=== PATIENT | male | born 1955 | race Caucasian/White ===

== ENCOUNTER → 2016-07-08 | Outpatient (CLI) | payer BC, OTHER ==
[2015-01-11 17:05] VITALS: BP 103/73
[~2016-07-08] MED LIST: ESCI5TAB8 PO; IOHEXOL 300 MG/ML 75 ML VIAL. IV ONE; METO25TA9 PO; MULT-208 PO; OMEG300C PO
--- NOTE | 2016-07-08 09:24 | RAD ---
Indication restage lymphoma. Contrast imaging through the chest, abdomen and pelvis was performed. Both oral and IV contrast were administered. Approximately 75 cc of Omnipaque 300 was administered intravenously. Comparison is made to a similar series of examinations 01/29/2015. CT chest: Findings. There is no significant axillary adenopathy. No significant hilar or mediastinal adenopathy is seen. The thoracic aorta appears normal. An acute parenchymal infiltrate in either lung is not seen. There is a nodule in the right lung, image 55 series 4, similar to the previous exam. An additional nodule, along the fissure is seen in the right lung, image 44, also unchanged. A new nodule or dominant soft tissue mass in either lung is not seen. CT abdomen and pelvis: Findings. A focal mass lesion in the liver is not seen. The gallbladder appears grossly normal. The spleen is unchanged. There is no definite splenomegaly. There is a small mass in the spleen similar to the previous exam likely reflecting an incidental cyst. The pancreas adrenal glands and kidneys appear unremarkable. There is no significant central or retroperitoneal adenopathy. Acute finding in the abdomen is not seen. In the pelvis there is no significant adenopathy. Acute finding is not apparent. There are small inguinal hernias containing fat. Degenerative changes are noted in the lumbar spine. IMPRESSION: No acute finding seen in the chest, abdomen or pelvis. No significant adenopathy seen in the chest, abdomen or pelvis. No evidence of tumor recurrence PQRS Compliance Statement: One or more of the following individualized dose reduction techniques were utilized for this examination: 1. Automated exposure control 2. Adjustment of the mA and/or kV according to patient size 3. Use of iterative reconstruction technique
== END | disposition home or self-care (01) ==
LOC: CT 07:55
PROVIDERS: ATTEND Internal Medicine Medical Oncology
DX: C83.33 Diffuse large B-cell lymphoma, intra-abdominal lymph nodes (principal); R10.9 Unspecified abdominal pain
CPT/HCPCS: 71260; 74177; Q9967

== ENCOUNTER → 2016-09-27 | Outpatient (CLI) | payer OTHER ==
[2015-01-11 17:05] VITALS: BP 103/73
[~2016-09-27] MED LIST changes: -IOHEXOL 300 MG/ML 75 ML VIAL. IV ONE
--- NOTE | 2016-09-27 12:03 | RAD ---
Indication cough and shortness of air. PA and lateral views of the chest were obtained and are compared to an examination 02/29/2008. The heart and pulmonary vessels appear normal. The lungs are clear. There is no pleural fluid or pneumothorax. Bony structures appear grossly unremarkable. IMPRESSION: No acute or focal process seen in the chest
== END | disposition home or self-care (01) ==
LOC: RAD 10:35
PROVIDERS: ATTEND Physician Assistant
DX: R05 Cough (principal); R06.02 Shortness of breath; R06.00 Dyspnea, unspecified
CPT/HCPCS: 71020

== ENCOUNTER 2017-11-13 20:37 | Inpatient (IN) | payer OTHER ==
[~2017-11-13] VITALS: Ht 182.9 cm; Wt 123.0 kg
[~2017-11-13 20:37] MED LIST changes: -ESCI5TAB8 PO; +LEXAPRO5 MG PO; +METO-239 PO; -METO25TA9 PO
--- NOTE | 2017-11-13 20:54 | ED.ADGEN ---
Past History Past Medical History: Anxiety, Cancer, Depression, High Cholesterol, Other Past Surgical History: Cancer Surgery, Tonsillectomy, Other Alcohol Use: Occasionally Drug Use: None Adult General Chief Complaint Chief Complaint ".. I was going up the stairs.. and I got dizzy..."... " I ve thaddeus been dizzy ever since they mess my meds all around.. ".. " I almost went completely out when I stood. up..." I see Jr D[facility], and [facility]... but I also go to [facility].. too for some care. I be been nauseated.. probably did not take enough fluids in... and I been getting muscle cramps... and stomach pain... but I have stomach pain all the time because of my B-Cell Lymphoma--scarred up and got attached to a bunch of my gut... but I been doing well... I did all the CHOP ... 8 treatments... and they removed my ports.. It just to day.. I been really dizzy... You took care of my mom when she was sick here...",, " Sometimes it feels like my heart is skips before I have the dizzy episodes..." HPI HPI Patient is a 62 year old male who presents with above hx and complaints of dizzy episodes. Pt. normally follows with [facility] and [facility]. Pt. has some what extensive medical hx. with treatment with B-cell lymphoma discovered on attempted surgical removal of his spleen. Lymphoma had it attached to much of his intestines. Spleen was not removed. The patient went on treatment of CHOP x 8 in 2009. Hx. of HTN, Anxiety, Hx. of Depression. Pt. recent had several med. changes, and since then pt. report episodic dizzy spells. Pt. did become dizzy and Hypotensive on standing after arrival to ED. Symptoms improved after bolus of LR. Review of Systems Review of Systems Constitutional: Denies fever or chills [] Eyes: Denies change in visual acuity, redness, or eye pain [] HENT: Denies nasal congestion or sore throat [] Respiratory: Denies cough or shortness of breath [] Cardiovascular: No additional information not addressed in HPI [] GI: Chronic abdominal pain, Hx nausea,. Denies vomiting, bloody stools or diarrhea [] : Denies dysuria or hematuria [] Musculoskeletal: Denies back pain or joint pain [] Integument: Denies rash or skin lesions [] Neurologic: Denies headache, focal weakness or sensory changes [] Endocrine: Denies polyuria or polydipsia [] All other systems were reviewed and found to be within normal limits, except as documented in this note. Family History Family History Non-contributory Current Medications Current Medications Current Medications Medications (Trade) Dose Ordered Sig/Tomi Start Time Stop Time Status Last Admin Dose Admin Lactated Ringer's 1,000 ml @ 1,000 mls/hr 1X ONCE 11/13/17 21:00 11/13/17 21:59 DC 11/13/17 21:00 1,000 MLS/HR Ondansetron HCl (Zofran Odt) 4 mg STK-MED ONCE 11/13/17 20:56 11/13/17 20:57 DC Allergies Allergies Allergies Coded Allergies Type Severity Reaction Last Updated Verified acetaminophen Allergy Intermediate Nausea 01/11/15 Yes codeine Allergy Intermediate Nausea 01/11/15 Yes Physical Exam Physical Exam Constitutional: , no acute distress, non-toxic appearance. [] HENT: Normocephalic, atraumatic, bilateral external ears normal, oropharynx moist, no oral exudates, nose normal. [] Eyes: PERRLA, EOMI, conjunctiva normal, no discharge. [] Neck: Normal range of motion, no tenderness, supple, no stridor. [] Cardiovascular:Heart rate regular rhythm, no murmur [] Lungs & Thorax: Bilateral breath sounds clear to auscultation [] Abdomen: Bowel sounds normal, soft, no tenderness, no masses, no pulsatile masses. [] Obese. Old surgery scars. Large splenic area scar. Skin: Warm, dry, no erythema, no rash. [] Back: No tenderness, no CVA tenderness. [] Extremities: No tenderness, no cyanosis, no clubbing, ROM intact, no edema. [] Arthritic changes. Neurologic: Alert and oriented X 3, no gross motor and l sensory function deficits, no gross focal deficits noted. [] Psychologic: Affect normal, judgement normal, mood normal. [] Current Patient Data Vital Signs Vital Signs Date Time Temp Pulse Resp B/P (MAP) Pulse Ox O2 Delivery O2 Flow Rate FiO2 11/13/17 20:37 98.2 86 18 93 Room Air Lab Results Laboratory Tests Test 11/13/17 21:29 White Blood Count 6.2 x10^3/uL (4.0-11.0) Red Blood Count 3.62 x10^6/uL (4.30-5.70) L Hemoglobin 12.1 g/dL (13.0-17.5) L Hematocrit 34.0 % (39.0-53.0) L Mean Corpuscular Volume 94 fL (79-100) Mean Corpuscular Hemoglobin 34 pg (25-35) Mean Corpuscular Hemoglobin Concent 36 g/dL (31-37) Red Cell Distribution Width 13.9 % (11.5-14.5) Platelet Count 142 x10^3/uL (140-400) Neutrophils (%) (Auto) 69 % (31-73) Lymphocytes (%) (Auto) 21 % (24-48) L Monocytes (%) (Auto) 8 % (0-9) Eosinophils (%) (Auto) 2 % (0-3) Basophils (%) (Auto) 0 % (0-3) Neutrophils # (Auto) 4.2 x10^3uL (1.8-7.7) Lymphocytes # (Auto) 1.3 x10^3/uL (1.0-4.8) Monocytes # (Auto) 0.5 x10^3/uL (0.0-1.1) Eosinophils # (Auto) 0.1 x10^3/uL (0.0-0.7) Basophils # (Auto) 0.0 x10^3/uL (0.0-0.2) Prothrombin Time 10.7 SEC (9.4-11.4) Prothrombin Time INR 1.0 (0.9-1.1) PTT 23 SEC (23-33) D-Dimer (Lizbeth) 0.31 mg/L (0.00-0.50) Sodium Level 136 mmol/L (136-145) Potassium Level 3.7 mmol/L (3.5-5.1) Chloride Level 103 mmol/L (98-107) Carbon Dioxide Level 28 mmol/L (21-32) Anion Gap 5 (6-14) L Blood Urea Nitrogen 20 mg/dL (8-26) Creatinine 1.1 mg/dL (0.7-1.3) Estimated GFR (Cockcroft-Gault) 68.1 Glucose Level 119 mg/dL (70-99) H Calcium Level 8.6 mg/dL (8.5-10.1) Magnesium Level 1.7 mg/dL (1.8-2.4) L Creatine Kinase 169 U/L (39-308) Creatine Kinase MB (Mass) 6.3 ng/mL (0.0-3.6) H Creatine Kinase MB Relative Index 3.7 % (0-4) Troponin I Quantitative < 0.017 ng/mL (0-0.055) HE-Tfs-J-Type Natriuretic Peptide 48 pg/mL (0-124) EKG EKG My interpretation of EKG shows a sinus rhythm at 72 bpm. There is mild leftward axis. Some nonspecific T-wave changes. No findings acute STEMI of contralateral changes.[] Radiology/Procedures Radiology/Procedures My interpretation chest x-ray shows some atelectasis. And elevation of left diaphragm.[] Chronic changes My interpretation of CT head shows no shift, mass, edema, fracture, or bleed. Does have some white matter disease changes. Course & Med Decision Making Course & Med Decision Making Pertinent Labs and Imaging studies reviewed. (See chart for details). Discussed presentation, testing and tx. plan with Dr. Montero. Will admit for further eval. tx. [] Final Impression Final Impression 1. Dizzy[]episodes. 2. Syncope 3. History of B-cell lymphoma- Complete CHOP x 8- Completed 9 yrs ago 4. Anemia 5. Subjective Hx. of dysrhythmia 6. Hx HTN 7. Hx. Anxiety 8. Hx. of Depression 9. Hypomagnesium Dragon Disclaimer Dragon Disclaimer This electronic medical record was generated, in whole or in part, using a voice recognition dictation system. TONE CESPEDES MD Nov 13, 2017 20:54
[2017-11-13] MEDS ORDERED: ONDANSETRON ODT 4 MG TAB.RAPDIS ONE (20:56)
[2017-11-13] MEDS ORDERED: IV RINGERS SOLUTION,LACTATED 1,000 ML IV ONE (21:00)
[2017-11-13] MEDS: IV RINGERS SOLUTION,LACTATED 1,000 ML IV SCH (21:22)
[2017-11-13 21:47] LABS: BASO % 0 % (0-3); EOS # 0.1 x10^3/uL (0.0-0.7); EOS % 2 % (0-3); HEMOGLOBIN 12.1 g/dL (13.0-17.5); LYMPH # 1.3 x10^3/uL (1.0-4.8); LYMPH % 21 % (24-48); MEAN CORPUSCULAR HEMOGLOBIN 34 pg (25-35); MEAN CORPUSCULAR HGB CONC 36 g/dL (31-37); MEAN CORPUSCULAR VOLUME 94 fL (79-100); MONO # 0.5 x10^3/uL (0.0-1.1); MONO % 8 % (0-9); NEUT # 4.2 x10^3uL (1.8-7.7); NEUT % 69 % (31-73); PLATELET COUNT 142 x10^3/uL (140-400); RED BLOOD COUNT 3.62 x10^6/uL (4.30-5.70); RED CELL DISTRIBUTION WIDTH 13.9 % (11.5-14.5); WHITE BLOOD COUNT 6.2 x10^3/uL (4.0-11.0)
[2017-11-13 22:10] LABS: CALCIUM 8.6 mg/dL (8.5-10.1); CREATININE 1.1 mg/dL (0.7-1.3); GFR 68.1; MAGNESIUM 1.7 mg/dL (1.8-2.4); POTASSIUM 3.7 mmol/L (3.5-5.1)
[2017-11-13] MEDS ORDERED: ONDANSETRON ODT 4 MG TAB.RAPDIS PO ONE (22:15)
[2017-11-13] MEDS ORDERED: ONDANSETRON PF 4 MG/2 ML VIAL. IV PRN (22:30)
[2017-11-13] MEDS ORDERED: MAGNESIUM SULFATE 2GM 50 ML IV ONE (22:30)
[2017-11-13] MEDS ORDERED: IV RINGERS SOLUTION,LACTATED 1,000 ML IV SCH (22:30)
[2017-11-13] MEDS: IPRATRPIUM/ALBUTEROL 0.5/2.5MG 3 ML NEBU. NEB SCH (22:30)
[2017-11-13] MEDS ORDERED: MORPHINE SULFATE 2 MG/ML DISP.SYRIN. IV PRN (22:30)
--- NOTE | 2017-11-13 22:34 | RAD ---
CT head without intravenous contrast History: Dizziness, syncopal episode. Comparison: None. Technique: Axial images are obtained of the head from the skull base through the vertex without IV contrast. Exposure: One or more of the following individualized dose reduction techniques were utilized for this examination: 1. Automated exposure control 2. Adjustment of the mA and/or kV according to patient size 3. Use of iterative reconstruction technique Findings: The ventricles are appropriate in size, shape, and location for the patient's age. No obvious intracranial mass, mass-effect, midline shift, hemorrhage or obvious acute infarction is identified. Basilar cisterns are patent. Bone windows demonstrate no acute calvarial abnormality. The visualized paranasal sinuses appear clear. Impression: No acute intracranial process. Please note that CT can be relatively insensitive to acute ischemic infarction for up to 24 hours after symptom onset. Electronically signed by: Kamari Toussaint MD (11/13/2017 10:30 PM) [facility]
--- NOTE | 2017-11-13 22:34 | RAD ---
Exam: AP portable chest History: Dizziness, syncope. Comparison: September 27, 2016. Findings: The heart and mediastinal structures are within normal limits for size. Lungs are without infiltrate. No pleural effusion or pneumothorax is identified. Impression: 1. No acute cardiopulmonary process. Electronically signed by: Kamari Toussaint MD (11/13/2017 10:31 PM) [facility]
[2017-11-13 22:56] LABS: BARBITURATES NEG (NEG); BENZODIAZEPINES NEG (NEG); CANNABINOIDS NEG (NEG); COCAINE NEG (NEG); METHADONE NEG (NEG); OPIATES NEG (NEG); PHENCYCLIDINE NEG (NEG)
[2017-11-13 22:57] LABS: AMPHETAMINE/METHAMPHETAMINE NEG (NEG)
[2017-11-13 22:59] LABS: BILIRUBIN,URINE NEG (NEG); CLARITY,URINE CLEAR; COLOR,URINE YELLOW; GLUCOSE,URINE NEG (NEG); NITRITE,URINE NEG (NEG); UROBILINOGEN,URINE 0.2 mg/dL (0.2 mg/dL)
[2017-11-13 23:00] LABS: BACTERIA,URINE FEW /HPF (0-FEW); RBC,URINE 0 /HPF (0-2); SQUAMOUS EPITHELIAL CELL,UR OCC /LPF; WBC,URINE OCC /HPF (0-4)
[2017-11-13] MEDS ORDERED: ASPIRIN 81 MG TAB.CHEW PO ONE (23:00)
[2017-11-13 23:30] VITALS: BP 112/72
[2017-11-14] MEDS ORDERED: zoloft (01:39)
[2017-11-14] MEDS ORDERED: ZOLP5TAB PO (01:39)
[2017-11-14] MEDS ORDERED: lasix (01:40)
[2017-11-14] MEDS ORDERED: CHOL2000 PO (01:41)
[2017-11-14] MEDS ORDERED: TAMS0.4C97 PO (01:41)
[2017-11-14] MEDS ORDERED: ESCI20TA2 PO (04:21)
[2017-11-14] MEDS ORDERED: METO-247 PO (04:21)
[2017-11-14] MEDS: IV RINGERS SOLUTION,LACTATED 1,000 ML IV SCH ×2 (04:47→10:45)
[2017-11-14] MEDS: IPRATRPIUM/ALBUTEROL 0.5/2.5MG 3 ML NEBU. NEB SCH ×2 (05:26→10:10)
[2017-11-14 06:23] VITALS: BP 112/67
--- NOTE | 2017-11-14 06:35 | EKG ---
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
[2017-11-14 06:51] LABS: BASO % 0 % (0-3); EOS # 0.1 x10^3/uL (0.0-0.7); EOS % 1 % (0-3); HEMATOCRIT 35.2 % (39.0-53.0); HEMOGLOBIN 12.6 g/dL (13.0-17.5); LYMPH # 1.3 x10^3/uL (1.0-4.8); LYMPH % 22 % (24-48); MEAN CORPUSCULAR HEMOGLOBIN 33 pg (25-35); MEAN CORPUSCULAR HGB CONC 36 g/dL (31-37); MEAN CORPUSCULAR VOLUME 93 fL (79-100); MONO # 0.5 x10^3/uL (0.0-1.1); MONO % 8 % (0-9); NEUT # 4.1 x10^3uL (1.8-7.7); NEUT % 68 % (31-73); PLATELET COUNT 134 x10^3/uL (140-400); RED BLOOD COUNT 3.77 x10^6/uL (4.30-5.70); RED CELL DISTRIBUTION WIDTH 13.9 % (11.5-14.5); WHITE BLOOD COUNT 6.1 x10^3/uL (4.0-11.0)
[2017-11-14 07:02] LABS: CALCIUM 8.6 mg/dL (8.5-10.1); CREATININE 1.1 mg/dL (0.7-1.3); GFR 68.1; POTASSIUM 3.7 mmol/L (3.5-5.1)
[2017-11-14] MEDS ORDERED: ALLO300T PO (09:43)
[2017-11-14] MEDS ORDERED: SERT25TA PO (09:43)
[2017-11-14] MEDS ORDERED: TERA5CAP3 PO (09:43)
[2017-11-14 11:28] VITALS: BP 108/70
--- NOTE | 2017-11-14 13:28 | PDOC2 ---
CONSULT Date of Admission DATE: 11/14/17 TIME: 13:22 Reason for Consult: Dizziness Referring Physician: Dr. Montero Chief Complaint Dizziness Source: Patient Problem List Problems Medical Problems: (1) Syncope and collapse Status: Acute History of Present Illness The patient is a 62-year-old male with a history of B-cell lymphoma and hypertension. He was admitted through the ER last evening for episodes of increased dizziness. Patient states he took one or 2 extra medications last evening which she is not sure of the name of. Following this he became dizzy and was brought to the emergency room. His dizziness resolved overnight and is feeling well this morning. His monitoring overnight showed a sinus rhythm. Workup has included a chest x-ray that showed no acute changes. CT head scan showed no acute process. EKG showed a sinus rhythm with nonspecific ST-T wave changes and T-wave inversion in lead 3. Troponins have been normal 2. Magnesium was mildly decreased at 1.7 and has been replaced. The patient is comfortable this morning and wishes to go home. Cardiovascular: HTN Heme/Onc: Other (B-cell lymphoma) Psych: Anxiety Past Surgical History: Tonsillectomy, Other (exploratory laparotomy.) Family History: Hypertension Smoke: No ALCOHOL: none Current Medications Current Medications Lactated Ringer's 1,000 ml @ 1,000 mls/hr 1X ONCE IV Last administered on at 21:00; Start 11/13/17 at 21:00; Stop 11/13/17 at 21:59; Status DC Ondansetron HCl (Zofran Odt) 4 mg STK-MED ONCE .ROUTE ; Start 11/13/17 at 20:56 ; Stop 11/13/17 at 20:57; Status DC Ondansetron HCl (Zofran Odt) 8 mg 1X ONCE PO Last administered on 11/13/17at 21 :04; Start 11/13/17 at 22:15; Stop 11/13/17 at 22:16; Status DC Lactated Ringer's 1,000 ml @ 160 mls/hr Q6H15M IV Last administered on at 04:47; Start 11/13/17 at 22:15; Stop 11/14/17 at 12:38; Status DC Ondansetron HCl (Zofran) 4 mg PRN Q4HRS PRN IV NAUSEA/VOMITING; Start 11/13/17 at 22:30; Stop 11/14/17 at 12:38; Status DC Morphine Sulfate (Morphine 2mg Syringe) 2 mg PRN Q2HR PRN IV PAIN; Start at 22:30; Stop 11/14/17 at 12:38; Status DC Albuterol/ Ipratropium (Duoneb) 3 ml RTQID NEB Last administered on 11/14/17at 10:10; Start 11/13/17 at 22:30; Stop 11/14/17 at 12:38; Status DC Lactated Ringer's 1,000 ml @ 160 mls/hr Q6H15M IV Last administered on at 23:56; Start 11/13/17 at 22:30; Stop 11/14/17 at 04:25; Status DC Magnesium Sulfate 50 ml @ 25 mls/hr 1X ONCE IV Last administered on 11/13/17at 23:56; Start 11/13/17 at 22:30; Stop 11/14/17 at 00:29; Status DC Aspirin (Children'S Aspirin) 324 mg 1X ONCE PO Last administered on 11/13/17at 22:51; Start 11/13/17 at 23:00; Stop 11/13/17 at 23:01; Status DC Active Scripts Active Reported Zoloft (Sertraline Hcl) 25 Mg Tablet 0.5 Tab PO DAILY 5 Days Allopurinol 300 Mg Tablet 1 Tab PO DAILY Terazosin Hcl 5 Mg Capsule 1 Cap PO QHS Escitalopram Oxalate 20 Mg Tablet 1 Tab PO DAILY Metoprolol Succinate ( Xl ) (Metoprolol Succinate) 100 Mg Tab.er.24h 1 Tab PO DAILY Vitamin D (Cholecalciferol (Vitamin D3)) 2,000 Unit Capsule 2,000 Unit PO DAILY Flomax (Tamsulosin Hcl) 0.4 Mg Cap.er.24h 0.4 Mg PO DAILY Ambien (Zolpidem Tartrate) 5 Mg Tablet 5 Mg PO PRN QHS PRN Allergies: Coded Allergies: acetaminophen (Verified Allergy, Intermediate, Nausea, 01/11/15) codeine (Verified Allergy, Intermediate, Nausea, 01/11/15) Cardiovascular: yes: Lt [place] General: No acute distress HEENT: Atraumatic Lungs: Clear to auscultation Heart: Regular rate Abdomen: Normal bowel sounds VITALS Vital Signs Date Time Temp Pulse Resp B/P (MAP) Pulse Ox O2 Delivery O2 Flow Rate FiO2 11/14/17 11:28 97.8 82 108/70 (83) 94 Room Air 11/14/17 06:23 18 Labs Laboratory Tests Test 11/13/17 21:29 11/13/17 22:35 11/14/17 02:30 11/14/17 06:08 White Blood Count 6.2 x10^3/uL (4.0-11.0) 6.1 x10^3/uL (4.0-11.0) Red Blood Count 3.62 x10^6/uL (4.30-5.70) 3.77 x10^6/uL (4.30-5.70) Hemoglobin 12.1 g/dL (13.0-17.5) 12.6 g/dL (13.0-17.5) Hematocrit 34.0 % (39.0-53.0) 35.2 % (39.0-53.0) Mean Corpuscular Volume 94 fL (79-100) 93 fL (79-100) Mean Corpuscular Hemoglobin 34 pg (25-35) 33 pg (25-35) Mean Corpuscular Hemoglobin Concent 36 g/dL (31-37) 36 g/dL (31-37) Red Cell Distribution Width 13.9 % (11.5-14.5) 13.9 % (11.5-14.5) Platelet Count 142 x10^3/uL (140-400) 134 x10^3/uL (140-400) Neutrophils (%) (Auto) 69 % (31-73) 68 % (31-73) Lymphocytes (%) (Auto) 21 % (24-48) 22 % (24-48) Monocytes (%) (Auto) 8 % (0-9) 8 % (0-9) Eosinophils (%) (Auto) 2 % (0-3) 1 % (0-3) Basophils (%) (Auto) 0 % (0-3) 0 % (0-3) Neutrophils # (Auto) 4.2 x10^3uL (1.8-7.7) 4.1 x10^3uL (1.8-7.7) Lymphocytes # (Auto) 1.3 x10^3/uL (1.0-4.8) 1.3 x10^3/uL (1.0-4.8) Monocytes # (Auto) 0.5 x10^3/uL (0.0-1.1) 0.5 x10^3/uL (0.0-1.1) Eosinophils # (Auto) 0.1 x10^3/uL (0.0-0.7) 0.1 x10^3/uL (0.0-0.7) Basophils # (Auto) 0.0 x10^3/uL (0.0-0.2) 0.0 x10^3/uL (0.0-0.2) Prothrombin Time 10.7 SEC (9.4-11.4) Prothromb Time International Ratio 1.0 (0.9-1.1) Activated Partial Thromboplast Time 23 SEC (23-33) D-Dimer (Lizbeth) 0.31 mg/L (0.00-0.50) Sodium Level 136 mmol/L (136-145) 137 mmol/L (136-145) Potassium Level 3.7 mmol/L (3.5-5.1) 3.7 mmol/L (3.5-5.1) Chloride Level 103 mmol/L (98-107) 103 mmol/L (98-107) Carbon Dioxide Level 28 mmol/L (21-32) 28 mmol/L (21-32) Anion Gap 5 (6-14) 6 (6-14) Blood Urea Nitrogen 20 mg/dL (8-26) 18 mg/dL (8-26) Creatinine 1.1 mg/dL (0.7-1.3) 1.1 mg/dL (0.7-1.3) Estimated GFR (Cockcroft-Gault) 68.1 68.1 Glucose Level 119 mg/dL (70-99) 118 mg/dL (70-99) Calcium Level 8.6 mg/dL (8.5-10.1) 8.6 mg/dL (8.5-10.1) Magnesium Level 1.7 mg/dL (1.8-2.4) Creatine Kinase 169 U/L (39-308) Creatine Kinase MB (Mass) 6.3 ng/mL (0.0-3.6) Creatine Kinase MB Relative Index 3.7 % (0-4) Troponin I Quantitative < 0.017 ng/mL (0-0.055) < 0.017 ng/mL (0-0.055) AZ-Ima-E-Type Natriuretic Peptide 48 pg/mL (0-124) Urine Collection Type Unknown Urine Color Yellow Urine Clarity Clear Urine pH 6.0 Urine Specific [place] 1.020 Urine Protein Neg (NEG-TRACE) Urine Glucose (UA) Neg mg/dL (NEG) Urine Ketones (Stick) Neg mg/dL (NEG) Urine Blood Neg (NEG) Urine Nitrite Neg (NEG) Urine Bilirubin Neg (NEG) Urine Urobilinogen Dipstick 0.2 mg/dL (0.2 mg/dL) Urine Leukocyte Esterase Neg (NEG) Urine RBC 0 /HPF (0-2) Urine WBC Occ /HPF (0-4) Urine Squamous Epithelial Cells Occ /LPF Urine Bacteria Few /HPF (0-FEW) Urine Mucus Mod /LPF Urine Opiates Screen Neg (NEG) Urine Methadone Screen Neg (NEG) Urine Barbiturates Neg (NEG) Urine Phencyclidine Screen Neg (NEG) Urine Amphetamine/Methamphetamine Neg (NEG) Urine Benzodiazepines Screen Neg (NEG) Urine Cocaine Screen Neg (NEG) Urine Cannabinoids Screen Neg (NEG) Urine Ethyl Alcohol Neg (NEG) Images CT scan of the head without contrast showed no acute processes. Chest x-ray showed no acute process. Assessment/Plan 1. Dizziness. Patient's dizziness has now resolved. His rhythm has remained stable overnight. He has ruled out for a myocardial infarction. CT head scan shows no acute process. Would increase activities today. If the patient remains stable he may go home later today from a cardiac viewpoint. He is seen at on a yearly basis for occasional palpitations. 2. Hypertension. Patient's blood pressures under control. 3. History of B-cell lymphoma. He is followed at for this. Thank you for allowing us to participate in the care of your patient. MARIAJOSE GAGE MD Nov 14, 2017 13:28
--- NOTE | 2017-11-19 10:29 | PDOC1 ---
History of Present Illness History of Present Illness Patient is a 62-year-old male with history of B-cell lymphoma underwent CHOP 8 in 2009 who presented to the emergency department last evening with a near syncopal episode. Patient states that he began taking a new antidepressant sertraline and thinks he might have taken a double dose for some reason. He does admit to drinking whiskey last night as well says he did not feel as if he were intoxicated. He wanted to get up from the chair and walk up the stairs and while doing so became very dizzy with some cold sweats and he had to sit down. He admittedly has not been drinking enough water and has been getting muscle cramps. He was evaluated in the emergency department and found to be hypotensive and dizzy with standing, these symptoms resolved with IV fluids. I find the patient today to be sitting up with family at bedside he is watching television having just finished breakfast. He is in good spirits and joking he denies any complaints and says he's been fine ever since he got the IV last night. Denies any headache or focal neurologic deficits no chest pain at any time. Cardiology has been to see him and cleared him and he is anticipating discharge home. EKG: Normal sinus rhythm [address] changes no STEMI CT of the head and chest x-ray were unremarkable for acute process ED labs: White blood cells 6.2, hemoglobin 12.1, platelets 142, PT 1, PTT 23, d- dimer 0.31, sodium 136, potassium 3.7, chloride 103, CO2 28, albumin 20, creatinine 1.1, troponin less than 0.017 Chief Complaint: DIZZY/LIGHT HEADED Allergies: Coded Allergies: acetaminophen (Verified Allergy, Intermediate, Nausea, 01/11/15) codeine (Verified Allergy, Intermediate, Nausea, 01/11/15) Past Medical History Cardiac: HTN, hyperipidemia Heme/Onc: Other (B-cell lymphoma) Psych: Anxiety, Depression Past Surgical History: Tonsillectomy, Other (exploratory laparotomy) Family History: No pertinent hx Past Social History Smoke: No Alcohol: occassional Drugs: None Lives: with Family Review of Systems Review Of Systems Fourteen system , review of systems has been reviewed. See HPI for pertinent positives and negative responses, other gonzales all other systems are negative, non pertinent or non contributory Constitutional: Sweats, Malaise; No: Fever, Chills Eyes: No: Eye Pain, Loss of vision, Photophobia, [place] ENT: No: Ear pain, Nose pain, Mouth pain Respiratory: No: Cough, Orthopnea, Shortness of breath, SOB with excertion Cardiovascular: No: Chest Pain, Palpitations, Paroxysmal Noc. Dyspnea, Edema Gastrointestinal: No: Nausea, Vomiting, Abdominal Pain Musculoskeletal: No: Gait Disturbance, Joint Pain, Joint Stiffness SKIN: YES: Warm, Dry, No Rashes Neurological: YES: Dizziness; No: Behavorial Changes, Bowel/Bladder ControlChng, Headaches Medications Current Medications Lactated Ringer's 1,000 ml @ 1,000 mls/hr 1X ONCE IV Last administered on at 21:00; Start 11/13/17 at 21:00; Stop 11/13/17 at 21:59; Status DC Ondansetron HCl (Zofran Odt) 4 mg STK-MED ONCE .ROUTE ; Start 11/13/17 at 20:56 ; Stop 11/13/17 at 20:57; Status DC Ondansetron HCl (Zofran Odt) 8 mg 1X ONCE PO Last administered on 11/13/17at 21 :04; Start 11/13/17 at 22:15; Stop 11/13/17 at 22:16; Status DC Lactated Ringer's 1,000 ml @ 160 mls/hr Q6H15M IV Last administered on at 04:47; Start 11/13/17 at 22:15; Stop 11/14/17 at 12:38; Status DC Ondansetron HCl (Zofran) 4 mg PRN Q4HRS PRN IV NAUSEA/VOMITING; Start 11/13/17 at 22:30; Stop 11/14/17 at 12:38; Status DC Morphine Sulfate (Morphine 2mg Syringe) 2 mg PRN Q2HR PRN IV PAIN; Start at 22:30; Stop 11/14/17 at 12:38; Status DC Albuterol/ Ipratropium (Duoneb) 3 ml RTQID NEB Last administered on 11/14/17at 10:10; Start 11/13/17 at 22:30; Stop 11/14/17 at 12:38; Status DC Lactated Ringer's 1,000 ml @ 160 mls/hr Q6H15M IV Last administered on at 23:56; Start 11/13/17 at 22:30; Stop 11/14/17 at 04:25; Status DC Magnesium Sulfate 50 ml @ 25 mls/hr 1X ONCE IV Last administered on 11/13/17at 23:56; Start 11/13/17 at 22:30; Stop 11/14/17 at 00:29; Status DC Aspirin (Children'S Aspirin) 324 mg 1X ONCE PO Last administered on 11/13/17at 22:51; Start 11/13/17 at 23:00; Stop 11/13/17 at 23:01; Status DC Active Scripts Active Reported Zoloft (Sertraline Hcl) 25 Mg Tablet 0.5 Tab PO DAILY 5 Days Allopurinol 300 Mg Tablet 1 Tab PO DAILY Terazosin Hcl 5 Mg Capsule 1 Cap PO QHS Escitalopram Oxalate 20 Mg Tablet 1 Tab PO DAILY Metoprolol Succinate ( Xl ) (Metoprolol Succinate) 100 Mg Tab.er.24h 1 Tab PO DAILY Vitamin D (Cholecalciferol (Vitamin D3)) 2,000 Unit Capsule 2,000 Unit PO DAILY Flomax (Tamsulosin Hcl) 0.4 Mg Cap.er.24h 0.4 Mg PO DAILY Ambien (Zolpidem Tartrate) 5 Mg Tablet 5 Mg PO PRN QHS PRN Exam Vital Signs Vital Signs Date Time Temp Pulse Resp B/P (MAP) Pulse Ox O2 Delivery O2 Flow Rate FiO2 11/14/17 11:28 97.8 82 108/70 (83) 94 Room Air 11/14/17 06:23 18 General Appearance: Alert, Oriented X3, Cooperative, No acute distress HEENT: Atraumatic, PERRLA, EOMI, Mucous membr. moist/pink Heart: Regular rate, Normal S1, Normal S2, No murmurs Abdominal: Normal bowel sounds, Soft, No tenderness Extremities: No clubbing, No cyanosis, No edema, Normal pulses Neuro: Normal gait, Normal speech, Strength at 5/5 X4 ext, Cranial nerves 3-12 NL Psych/Mental Status: Mental status NL, Mood NL Assessment/Plan Assessment/Plan Near syncope Orthostatic hypotension Hypovolemia History of B-cell lymphoma Aggressive hydration Take medications as prescribed Take care when standing do so slowly Follow-up with her doctor this week COURSE Allergies Coded Allergies Type Severity Reaction Last Updated Verified acetaminophen Allergy Intermediate Nausea 01/11/15 Yes codeine Allergy Intermediate Nausea 01/11/15 Yes Vital Signs Date Time Temp Pulse Resp B/P (MAP) Pulse Ox O2 Delivery O2 Flow Rate FiO2 11/14/17 11:28 97.8 82 108/70 (83) 94 Room Air 11/14/17 06:23 18 DAVE MACIAS DO Nov 19, 2017 10:29
== END 2017-11-14 12:21 | disposition home or self-care (01) | DRG 312 ==
LOC: ER 20:37 → 1 SOUTH 22:00
PROVIDERS: ADMIT Internal Medicine; ATTEND Internal Medicine
DX: I95.1 Orthostatic hypotension (principal); R42 Dizziness and giddiness; E78.00 Pure hypercholesterolemia, unspecified; F41.9 Anxiety disorder, unspecified; I10 Essential (primary) hypertension; F32.9 Major depressive disorder, single episode, unspecified; Z82.49 Family history of ischemic heart disease and other diseases of the circulatory system; Z88.8 Allergy status to other drugs, medicaments and biological substances; Z79.899 Other long term (current) drug therapy; E86.1 Hypovolemia
CPT/HCPCS: 36415; 70450; 71045; 80048; 80307; 81001; 82553; 83735; 83880; 84484; 85025; 85379; 85610; 85730; 93005; 94640; 96360; G0238; J3475; J7120; J7620; Q0162; 99285-25; G0479

== ENCOUNTER 2018-10-11 05:07 | Emergency (ER) | payer OTHER ==
[~2018-10-11] VITALS: Ht 182.9 cm; Wt 123.4 kg
[~2018-10-11 05:07] MED LIST changes: +ALLO300T PO; +CHOL2000 PO; +ESCI20TA2 PO; +METO-247 PO; +SERT25TA PO; +TAMS0.4C97 PO; +TERA5CAP3 PO; +ZOLP5TAB PO; +lasix; +zoloft
[2018-10-11 05:15] VITALS: BP 132/75
--- NOTE | 2018-10-11 05:50 | ED.ADGEN ---
Past History Past Medical History: Other Past Surgical History: Other Alcohol Use: Occasionally Drug Use: None Adult General Chief Complaint Chief Complaint Productive cough HPI HPI Patient is a 63-year-old male with history of recurrent bronchitis who presents with productive cough for the past 5 days. Patient was evaluated at [facility] 3 days ago for the same and started on Z-Darrick and guaifenesin with codeine. Patient states medications has not helped and hit that his sputum production is now yellow. Reports persistent rhinorrhea, postnasal drip and cough. No shortness of breath. No fevers chills, nausea vomiting or sweats. Patient is unable to sleep and has developed a headache and chest wall pain secondary to the cough. Patient is a nonsmoker. No history of asthma. No other medications or therapy sticking prior to ED arrival.[] Review of Systems Review of Systems Review symptoms as per history of present illness. All other review symptoms are negative. All other systems were reviewed and found to be within normal limits, except as documented in this note. Current Medications Current Medications Current Medications Medications (Trade) Dose Ordered Sig/Tomi Start Time Stop Time Status Last Admin Dose Admin Albuterol/ Ipratropium (Duoneb) 3 ml 1X ONCE 10/11/18 06:00 10/11/18 06:01 Allergies Allergies Allergies Coded Allergies Type Severity Reaction Last Updated Verified acetaminophen Allergy Intermediate Nausea 01/11/15 Yes codeine Allergy Intermediate Nausea 01/11/15 Yes Physical Exam Physical Exam Constitutional: Well developed, well nourished, no acute distress, non-toxic appearance. [] HENT: Normocephalic, no sinus , bilateral external ears normal, oropharynx moist, no oral exudates, nose, rhinorrhea, minimal erythema with swelling. Voice hoarseness.[] Eyes: PERRLA, conjunctivae injected.[] Neck: Normal range of motion, no tenderness, supple, no stridor. [] Cardiovascular:Heart rate regular rhythm, no murmur [] Lungs & Thorax: Bilateral breath sounds clear to auscultation.[] Back: No tenderness, no CVA tenderness. [] Extremities: No tenderness, no cyanosis, no clubbing, ROM intact, no edema. [] Neurologic: Alert and oriented X 3, normal motor function, normal sensory function, no focal deficits noted. [] Psychologic: Affect normal, judgement normal, mood normal. [] Current Patient Data Vital Signs Vital Signs Date Time Temp Pulse Resp B/P (MAP) Pulse Ox O2 Delivery O2 Flow Rate FiO2 10/11/18 05:15 98.8 86 24 132/75 (94) 97 Room Air EKG EKG [] Radiology/Procedures Radiology/Procedures [Chest x-ray: Pending] Course & Med Decision Making Course & Med Decision Making Pertinent Labs and Imaging studies reviewed. (See chart for details) [Patient with rhinosinusitis with bronchitis and headache and chest wall pain secondary to the same. On day 4 of Z-Darrick and guaifenesin with codeine without improvement. Breathing treatment given. Chest x-ray pending. Will prescribe Tessalon Perles with nasal steroids and decongestant. Recommend PCP follow-up. Lissette continue current antibiotics if chest x-ray is negative] Final Impression Final Impression [] Dragon Disclaimer Dragon Disclaimer This electronic medical record was generated, in whole or in part, using a voice recognition dictation system. TEJAL CHERY DO Oct 11, 2018 05:50
[2018-10-11] MEDS ORDERED: BENZ100C PO (05:56)
[2018-10-11] MEDS ORDERED: FEXO180T81 PO (05:56)
[2018-10-11] MEDS ORDERED: TRIA10.8 NS (05:56)
[2018-10-11] MEDS ORDERED: IPRATRPIUM/ALBUTEROL 0.5/2.5MG 3 ML NEBU. NEB ONE (06:00)
--- NOTE | 2018-10-11 06:36 | RAD ---
Chest radiograph 10/11/2018 5:38 AM INDICATION: Congestion, cough COMPARISON: November 13, 2017 TECHNIQUE: Frontal and lateral views of the chest are provided. FINDINGS: The cardiomediastinal silhouette is within normal limits. There are no pleural effusions. There is mild pulmonary vascular congestion. There is no pneumothorax. The lungs are clear. No significant osseous abnormality is identified. IMPRESSION: Mild pulmonary vascular congestion. Electronically signed by: Mary Saldana MD (10/11/2018 6:32 AM) [facility]
== END 2018-10-11 06:18 | disposition home or self-care (01) ==
LOC: ER 05:07
DX: J40 Bronchitis, not specified as acute or chronic (principal); J32.8 Other chronic sinusitis; R07.89 Other chest pain; Z88.5 Allergy status to narcotic agent; Z88.6 Allergy status to analgesic agent
CPT/HCPCS: 71046; 94640; 99284; J7620

== ENCOUNTER 2019-12-27 09:25 | Emergency (ER) | payer OTHER ==
[~2019-12-27] VITALS: Ht 182.9 cm; Wt 112.6 kg
[~2019-12-27 09:25] MED LIST changes: +BENZ100C PO; +FEXO180T81 PO; +TRIA10.8 NS
--- NOTE | 2019-12-27 09:57 | PHYS DOC ---
Past History Past Medical History: Anxiety, Arthritis, Arrhythmia, Bronchitis, Cancer, Depression, GERD, Sciatica Additional Past Medical Histor: GOUT; NON-HODGKIND LYMPHOMA; SKIN CANCER Past Surgical History: Tonsillectomy, Other Additional Past Surgical Histo: R KNEE; L KNEE; EYE; TUMOR REMOVED FROM ABD; ING HERNIA; R FOOT Alcohol Use: Occasionally Drug Use: None General Adult EDM: Chief Complaint: NAUSEA/VOMITING/DIARRHEA HPI: HPI: The history was obtained from the patient. Patient is a 64-year-old male with PMH GERD, hypertension, anxiety, depression who presents with a chief complaint of nausea. Patient states he has had 2 episodes of nonbloody nonbilious emesis over the past 24 hours. He states that he drank quite a bit of alcohol 3 days prior to arrival. He states he does not typically do this. He notes very mild diffuse abdominal discomfort. He notes a history of abdominal surgery due to splenic tumor removal. He does note some increased labored breathing but thinks this is because he does not feel well. Denies any chest pain. Denies fevers. Denies cough or sore throat. Denies syncope. Has not tried any medicine at home to help. Denies any tobacco or drug abuse. States the abdominal pain is cramping in nature and constant. Denies any known exposure to coronavirus. Review of Systems: Review of Systems: Constitutional: Denies fever or chills Eyes: Denies change in visual acuity HENT: Denies nasal congestion or sore throat Respiratory: Denies cough or shortness of breath Cardiovascular: Denies chest pain or edema GI: Positive for vomiting : Denies dysuria Musculoskeletal: Denies back pain or joint pain Integument: Denies rash Neurologic: Denies headache, focal weakness or sensory changes Endocrine: Denies polyuria or polydipsia Lymphatic: Denies swollen glands Psychiatric: Denies depression or anxiety Heart Score: HEART Score for Chest Pain: HEART Score for Chest Pain Response (Comments) Value History Slighlty/Non-Suspicious 0 ECG Nonspecific Repolarizatio 1 Age >45 - < 65 1 Risk Factors 1 or 2 Risk Factors 1 Troponin < Normal Limit 0 Total 3 Risk Factors: Risk Factors: DM, Current or recent (<one month) smoker, HTN, HLP, family history of CAD, obesity. Risk Scores: Score 0 - 3: 2.5% MACE over next 6 weeks - Discharge Home Score 4 - 6: 20.3% MACE over next 6 weeks - Admit for Clinical Observation Score 7 - 10: 72.7% MACE over next 6 weeks - Early Invasive Strategies Allergies: Allergies: Allergies Coded Allergies Type Severity Reaction Last Updated Verified acetaminophen Allergy Intermediate Nausea 12/27/19 Yes codeine Allergy Intermediate Nausea 12/27/19 Yes Physical Exam: PE: Constitutional: Well developed, well nourished, no acute distress, non-toxic appearance. [] HENT: Normocephalic, atraumatic, bilateral external ears normal, oropharynx moist, no oral exudates, nose normal. [] Eyes: PERRLA, EOMI, conjunctiva normal, no discharge. [] Neck: Normal range of motion, no tenderness, supple, no stridor. [] Cardiovascular:Heart rate regular rhythm, no murmur [] Lungs & Thorax: Bilateral breath sounds clear to auscultation [] Abdomen: Soft, nontender, nonacute abdomen. No involuntary guarding or rigidity noted. No acute peritonitis. Midline laparotomy scar noted. Well-healed. Skin: Warm, dry, no erythema, no rash. [] Back: No tenderness, no CVA tenderness. [] Extremities: No tenderness, no cyanosis, no clubbing, ROM intact, no edema. [] Neurologic: Alert and oriented X 3, normal motor function, normal sensory function, no focal deficits noted. [] Psychologic: Affect normal, judgement normal, mood normal. [] Current Patient Data: Labs: Laboratory Tests Test 12/27/19 10:12 12/27/19 11:15 White Blood Count 5.8 x10^3/uL Red Blood Count 4.11 x10^6/uL Hemoglobin 14.0 g/dL Hematocrit 40.5 % Mean Corpuscular Volume 99 fL Mean Corpuscular Hemoglobin 34 pg Mean Corpuscular Hemoglobin Concent 35 g/dL Red Cell Distribution Width 14.8 % Platelet Count 173 x10^3/uL Neutrophils (%) (Auto) 75 % Lymphocytes (%) (Auto) 17 % Monocytes (%) (Auto) 7 % Eosinophils (%) (Auto) 1 % Basophils (%) (Auto) 1 % Neutrophils # (Auto) 4.4 x10^3uL Lymphocytes # (Auto) 1.0 x10^3/uL Monocytes # (Auto) 0.4 x10^3/uL Eosinophils # (Auto) 0.1 x10^3/uL Basophils # (Auto) 0.0 x10^3/uL D-Dimer (Lizbeth) 0.22 mg/L Sodium Level 140 mmol/L Potassium Level 4.2 mmol/L Chloride Level 102 mmol/L Carbon Dioxide Level 26 mmol/L Anion Gap 12 Blood Urea Nitrogen 16 mg/dL Creatinine 1.0 mg/dL Estimated GFR (Cockcroft-Gault) 75.5 BUN/Creatinine Ratio 16 Glucose Level 112 mg/dL Calcium Level 9.2 mg/dL Magnesium Level 1.9 mg/dL Total Bilirubin 1.0 mg/dL Aspartate Amino Transf (AST/SGOT) 22 U/L Alanine Aminotransferase (ALT/SGPT) 33 U/L Alkaline Phosphatase 59 U/L Troponin I Quantitative < 0.017 ng/mL Total Protein 7.0 g/dL Albumin 4.2 g/dL Albumin/Globulin Ratio 1.5 Lipase 66 U/L Urine Collection Type Unknown Urine Color Yellow Urine Clarity Clear Urine pH 8.5 Urine Specific [place] 1.020 Urine Protein Neg Urine Glucose (UA) Neg mg/dL Urine Ketones (Stick) Neg mg/dL Urine Blood Neg Urine Nitrite Neg Urine Bilirubin Neg Urine Urobilinogen Dipstick 0.2 mg/dL Urine Leukocyte Esterase Neg Urine RBC Occ /HPF Urine WBC Occ /HPF Urine Squamous Epithelial Cells Few /LPF Urine Bacteria 0 /HPF Current Medications Medications (Trade) Dose Ordered Sig/Tomi Route PRN Reason Start Time Stop Time Status Last Admin Dose Admin Ondansetron HCl (Zofran) 4 mg 1X ONCE IVP 12/27/19 10:00 12/27/19 10:01 DC 12/27/19 11:04 Pantoprazole Sodium (Protonix Vial) 40 mg 1X ONCE IVP 12/27/19 10:00 12/27/19 10:01 DC 12/27/19 11:07 Famotidine (Pepcid Vial) 20 mg 1X ONCE IVP 12/27/19 10:00 12/27/19 10:01 DC 12/27/19 11:05 Vital Signs: Vital Signs Date Time Temp Pulse Resp B/P (MAP) Pulse Ox O2 Delivery O2 Flow Rate FiO2 12/27/19 09:43 98.4 EKG: EKG: EKG consistent with normal sinus rhythm. Left axis noted. Flipped T wave in lead III. No acute ST segment elevation appreciated. [] Radiology/Procedures: Radiology/Procedures: [address] [address] IMAGING REPORT Signed PATIENT: BYRON COVARRUBIAS ACCOUNT: [id number] : 1955 LOCATION: ER AGE: 64 SEX: M EXAM STATUS: PRE ER ORD. PHYSICIAN: NATALIA LEBRON DO REASON: SOB PROCEDURE: CHEST AP ONLY CHEST AP ONLY 12/27/2019 9:52 AM INDICATION: Shortness of breath COMPARISON: 10/11/2018 TECHNIQUE: Portable frontal view of the chest is provided. FINDINGS: The cardiomediastinal silhouette is within normal limits. Lungs are clear. There are no significant pleural effusions. There is no pulmonary vascular congestion. No pneumothorax. No suspicious osseous abnormality. IMPRESSION: There is no acute cardiopulmonary process. Electronically signed by: Loki Prasad MD (12/27/2019 10:19 AM) [id number] DICTATED AND SIGNED BY: LOKI PRASAD MD DATE: 12/27/19 1019 CC: LOBO BRENE; NATALIA LEBRON DO ~ [] Course & Med Decision Making: Course & Med Decision Making Pertinent Labs and Imaging studies reviewed. (See chart for details) Patient is a 64-year-old male who presents with chief complaint of nausea vomiting and intermittent chest pain. Initial vital signs grossly unremarkable. EKG does show nonspecific inverted T wave in lead III. No previous EKG for comparison. Basic labs were obtained and were grossly unremarkable. Initial troponin negative. D-dimer negative. On repeat examination patient's abdomen is benign vitals remained stable. He states his symptoms have improved significantly. I did engage the patient in a collaborative discussion regarding the possibility of hospitalization for further work-up of his chest pain. He states he does follow with a safety officer Dr. Reese at [facility] who is done calcium testing on him recently which was normal.. However he does deny any ischemic work-up. Overall the patient's heart score places him in the low to moderate risk category. I do ultimately feel he would benefit from hosp italization however the patient feels the symptoms are related to his recent drinking 3 nights ago. He states his symptoms have improved. Utilizing shared decision making patient will be discharged home with close follow-up by his PCP and safety officer. Strict return precautions discussed and understood. Stable for discharge home. Barbara Disclaimer: Barbara Disclaimer: This electronic medical record was generated, in whole or in part, using a voice recognition dictation system. Departure Departure: Impression: Primary Impression: Nausea & vomiting Qualified Codes: R11.2 - Nausea with vomiting, unspecified Additional Impression: Chest pain Qualified Codes: R07.9 - Chest pain, unspecified Disposition: HOME/RESIDENCE PRIOR TO ADM Condition: STABLE Referrals: LOBO BREEN (PCP) Patient Instructions: Chest Pain (Nonspecific) Additional Instructions: Please follow-up with your primary care physician in the next 2 to 3 days and your safety officer in the next week. Scripts Ondansetron Hcl (ZOFRAN) 8 Mg Tablet 4 MG PO TID PRN PRN for NAUSEA, #9 TAB Prov: NATALIA LEBRON DO 12/27/19 Justification of Admission: Justification of Admission: Justification of Admission Dx: N/A NATALIA LEBRON DO Dec 27, 2019 09:57
[2019-12-27] MEDS ORDERED: FAMOTIDINE 20 MG/2 ML VIAL IVP ONE (10:00)
[2019-12-27] MEDS ORDERED: ONDANSETRON PF 4 MG/2 ML VIAL. IVP ONE (10:00)
[2019-12-27] MEDS ORDERED: PANTOPRAZOLE IV 40 MG VIAL. IVP ONE (10:00)
--- NOTE | 2019-12-27 10:12 | EKG ---
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
--- NOTE | 2019-12-27 10:22 | RAD ---
CHEST AP ONLY 12/27/2019 9:52 AM INDICATION: Shortness of breath COMPARISON: 10/11/2018 TECHNIQUE: Portable frontal view of the chest is provided. FINDINGS: The cardiomediastinal silhouette is within normal limits. Lungs are clear. There are no significant pleural effusions. There is no pulmonary vascular congestion. No pneumothorax. No suspicious osseous abnormality. IMPRESSION: There is no acute cardiopulmonary process. Electronically signed by: Mary Saldana MD (12/27/2019 10:19 AM) [id number]
[2019-12-27 10:31] LABS: BASO % 1 % (0-3); EOS # 0.1 x10^3/uL (0.0-0.7); EOS % 1 % (0-3); HEMATOCRIT 40.5 % (39.0-53.0); LYMPH % 17 % (24-48); MEAN CORPUSCULAR HEMOGLOBIN 34 pg (25-35); MEAN CORPUSCULAR HGB CONC 35 g/dL (31-37); MEAN CORPUSCULAR VOLUME 99 fL (79-100); MONO # 0.4 x10^3/uL (0.0-1.1); MONO % 7 % (0-9); NEUT # 4.4 x10^3uL (1.8-7.7); NEUT % 75 % (31-73); PLATELET COUNT 173 x10^3/uL (140-400); RED BLOOD COUNT 4.11 x10^6/uL (4.30-5.70); RED CELL DISTRIBUTION WIDTH 14.8 % (11.5-14.5); WHITE BLOOD COUNT 5.8 x10^3/uL (4.0-11.0)
[2019-12-27 10:41] LABS: CALCIUM 9.2 mg/dL (8.5-10.1); GFR 75.5; POTASSIUM 4.2 mmol/L (3.5-5.1)
[2019-12-27 10:47] LABS: ALBUMIN 4.2 g/dL (3.4-5.0); ALBUMIN/GLOBULIN RATIO 1.5 (1.0-1.7); MAGNESIUM 1.9 mg/dL (1.8-2.4)
[2019-12-27 12:14] LABS: BACTERIA,URINE 0 /HPF (0-FEW); BILIRUBIN,URINE NEG (NEG); CLARITY,URINE CLEAR; COLOR,URINE YELLOW; GLUCOSE,URINE NEG (NEG); NITRITE,URINE NEG (NEG); RBC,URINE OCC /HPF (0-2); SQUAMOUS EPITHELIAL CELL,UR FEW /LPF; UROBILINOGEN,URINE 0.2 mg/dL (0.2 mg/dL); WBC,URINE OCC /HPF (0-4)
[2019-12-27] MEDS ORDERED: ONDA8TAB9 PO (12:28)
[2019-12-27 12:39] VITALS: BP 137/82
== END 2019-12-27 12:30 | disposition home or self-care (01) ==
LOC: ER 09:25
DX: R11.2 Nausea with vomiting, unspecified (principal); R07.9 Chest pain, unspecified; R10.84 Generalized abdominal pain; K21.9 Gastro-esophageal reflux disease without esophagitis; I10 Essential (primary) hypertension; M19.90 Unspecified osteoarthritis, unspecified site; Z88.5 Allergy status to narcotic agent; Z88.6 Allergy status to analgesic agent
CPT/HCPCS: 36415; 71045; 80053; 81001; 83690; 83735; 84484; 85025; 85379; 93005; 96374; 96375; 99285; C9113; J2405; J3490

== ENCOUNTER 2020-07-12 14:45 | Emergency (ER) | payer OTHER ==
[~2020-07-12] VITALS: Ht 182.9 cm; Wt 112.6 kg
[~2020-07-12 14:45] MED LIST changes: -ESCI20TA2 PO; +ESCI20TA8 PO; +ONDA8TAB9 PO
[2020-07-12] MEDS ORDERED: IV NORMAL SALINE 1,000ML 1,000 ML IV SCH (15:00)
--- NOTE | 2020-07-12 15:06 | EKG ---
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
[2020-07-12 15:17] LABS: BASO % 0 % (0-3); EOS % 0 % (0-3); HEMATOCRIT 41.5 % (39.0-53.0); HEMOGLOBIN 13.9 g/dL (13.0-17.5); LYMPH # 0.7 x10^3/uL (1.0-4.8); LYMPH % 5 % (24-48); MEAN CORPUSCULAR HEMOGLOBIN 33 pg (25-35); MEAN CORPUSCULAR HGB CONC 33 g/dL (31-37); MEAN CORPUSCULAR VOLUME 97 fL (79-100); MONO # 0.8 x10^3/uL (0.0-1.1); MONO % 6 % (0-9); NEUT # 12.2 x10^3uL (1.8-7.7); NEUT % 89 % (31-73); PLATELET COUNT 172 x10^3/uL (140-400); RED BLOOD COUNT 4.27 x10^6/uL (4.30-5.70); RED CELL DISTRIBUTION WIDTH 16.2 % (11.5-14.5); WHITE BLOOD COUNT 13.8 x10^3/uL (4.0-11.0)
--- NOTE | 2020-07-12 15:17 | RAD ---
AP chest. HISTORY: Short of breath AP view was taken of the chest. There is no pneumothorax or pleural effusion. Lungs are clear. Heart is normal in size. IMPRESSION: 1. No acute chest disease. Electronically signed by: Darrion Miles MD (07/12/2020 3:15 PM) [facility]
[2020-07-12 15:24] LABS: CALCIUM 8.7 mg/dL (8.5-10.1); CREATININE 1.5 mg/dL (0.7-1.3); GFR 47.1; POTASSIUM 3.5 mmol/L (3.5-5.1)
--- NOTE | 2020-07-12 15:28 | PHYS DOC ---
Past History Past Medical History: Anxiety, Arthritis, Arrhythmia, Bronchitis, Cancer, Depression, GERD, Sciatica Additional Past Medical Histor: GOUT; NON-HODGKIND LYMPHOMA; SKIN CANCER (MICHEL CASTELLANOS MD) Past Surgical History: Tonsillectomy, Other Additional Past Surgical Histo: R KNEE; L KNEE; EYE; TUMOR REMOVED FROM ABD; ING HERNIA; R FOOT (MICHEL CASTELLANOS MD) Alcohol Use: Occasionally Drug Use: None (MICHEL CASTELLANOS MD) Adult General Chief Complaint Chief Complaint: RAPID HEART RATE HPI HPI Patient is a 65-year-old male with an extensive past medical history now presenting emergency department for new onset of tachycardia and fever. Patient notes that yesterday afternoon he started noting general sensation of fatigue and developed sensation sore throat. Patient states that this morning he noted that he was further feeling unwell today when he was developing fever. They surjit t to the urgent care and noted that he was tachycardic to 135% here to the emergency department patient does complain of generalized fatigue, fevers, [place] nonproductive cough and body aches. Denies any chest pain, shortness of breath or dizziness at this time. (MICHEL CASTELLANOS MD) Review of Systems Review of Systems Constitutional: Denies fever or chills [] Eyes: Denies change in visual acuity, redness, or eye pain [] HENT: Denies nasal congestion or sore throat [] Respiratory: Denies cough or shortness of breath [] Cardiovascular: No additional information not addressed in HPI [] GI: Denies abdominal pain, nausea, vomiting, bloody stools or diarrhea [] : Denies dysuria or hematuria [] Musculoskeletal: Denies back pain or joint pain [] Integument: Denies rash or skin lesions [] Neurologic: Denies headache, focal weakness or sensory changes [] Endocrine: Denies polyuria or polydipsia [] All other systems were reviewed and found to be within normal limits, except as documented in this note. (MICHEL CASTELLANOS MD) Current Medications Current Medications Current Medications Medications (Trade) Dose Ordered Sig/Tomi Start Time Stop Time Status Last Admin Dose Admin Sodium Chloride 1,000 ml @ 1,000 mls/hr Q1H 07/12/20 15:00 07/12/20 15:59 07/12/20 15:17 1,000 MLS/HR (MICHEL CASTELLANOS MD) Allergies Allergies Allergies Coded Allergies Type Severity Reaction Last Updated Verified acetaminophen Allergy Intermediate Nausea 12/27/19 Yes codeine Allergy Intermediate Nausea 12/27/19 Yes (MICHEL CASTELLANOS MD) Physical Exam Physical Exam Constitutional: Well developed, well nourished, no acute distress, non-toxic appearance. [] HENT: Normocephalic, atraumatic, bilateral external ears normal, oropharynx moist, no oral exudates, nose normal. [] Eyes: PERRLA, EOMI, conjunctiva normal, no discharge. [] Neck: Normal range of motion, no tenderness, supple, no stridor. [] Cardiovascular:Heart rate regular rhythm, no murmur [] Lungs & Thorax: Bilateral breath sounds clear to auscultation [] Abdomen: Bowel sounds normal, soft, no tenderness, no masses, no pulsatile masses. [] Skin: Warm, dry, no erythema, no rash. [] Back: No tenderness, no CVA tenderness. [] Extremities: No tenderness, no cyanosis, no clubbing, ROM intact, no edema. [] Neurologic: Alert and oriented X 3, normal motor function, normal sensory function, no focal deficits noted. [] Psychologic: Affect normal, judgement normal, mood normal. [] (MICHEL CASTELLANOS MD) Current Patient Data Lab Results Laboratory Tests Test 07/12/20 14:57 White Blood Count 13.8 x10^3/uL (4.0-11.0) H Red Blood Count 4.27 x10^6/uL (4.30-5.70) L Hemoglobin 13.9 g/dL (13.0-17.5) Hematocrit 41.5 % (39.0-53.0) Mean Corpuscular Volume 97 fL (79-100) Mean Corpuscular Hemoglobin 33 pg (25-35) Mean Corpuscular Hemoglobin Concent 33 g/dL (31-37) Red Cell Distribution Width 16.2 % (11.5-14.5) H Platelet Count 172 x10^3/uL (140-400) Neutrophils (%) (Auto) 89 % (31-73) H Lymphocytes (%) (Auto) 5 % (24-48) L Monocytes (%) (Auto) 6 % (0-9) Eosinophils (%) (Auto) 0 % (0-3) Basophils (%) (Auto) 0 % (0-3) Neutrophils # (Auto) 12.2 x10^3uL (1.8-7.7) H Lymphocytes # (Auto) 0.7 x10^3/uL (1.0-4.8) L Monocytes # (Auto) 0.8 x10^3/uL (0.0-1.1) Eosinophils # (Auto) 0.0 x10^3/uL (0.0-0.7) Basophils # (Auto) 0.0 x10^3/uL (0.0-0.2) (MICHEL CASTELLANOS MD) EKG EKG [] (MICHEL CASTELLANOS MD) EKG My interpretation EKG shows a sinus tachycardia at ventricular rate of 134 bpm. Nonspecific contour changes. Consistent with strain pattern (TONE CESPEDES MD) Radiology/Procedures Radiology/Procedures AP chest. HISTORY: Short of breath AP view was taken of the chest. There is no pneumothorax or pleural effusion. Lungs are clear. Heart is normal in size. IMPRESSION: 1. No acute chest disease. Electronically signed by: Darrion Miles MD (07/12/2020 3:15 PM) [facility] (MICHEL CASTELLANOS MD) Radiology/Procedures [address] [address] IMAGING REPORT Signed PATIENT: BYRON COVARRUBIAS ACCOUNT: [id number] : 1955 LOCATION: ER AGE: 65 SEX: M EXAM STATUS: REG ER ORD. PHYSICIAN: MICHEL CASTELLANOS MD REASON: sob PROCEDURE: PORTABLE CHEST 1V AP chest. HISTORY: Short of breath [address] [address] IMAGING REPORT Signed PATIENT: BYRON COVARRUBIAS ACCOUNT: [id number] : 1955 LOCATION: ER AGE: 65 SEX: M EXAM STATUS: REG ER ORD. PHYSICIAN: MICHEL CASTELLANOS MD REASON: sob PROCEDURE: PORTABLE CHEST 1V AP chest. HISTORY: Short of breath AP view was taken of the chest. There is no pneumothorax or pleural effusion. Lungs are clear. Heart is normal in size. IMPRESSION: 1. No acute chest disease. Electronically signed by: Darrion Miles MD (07/12/2020 3:15 PM) [facility] DICTATED AND SIGNED BY: DARRION MILES MD DATE: 07/12/201513 CC: LOBO BREEN; MICHEL CASTELLANOS MD ~MTH0 0 AP view was taken of the chest. There is no pneumothorax or pleural effusion. Lungs are clear. Heart is normal in size. IMPRESSION: 1. No acute chest disease. Electronically signed by: Darrion Miles MD (07/12/2020 3:15 PM) [facility] DICTATED AND SIGNED BY: DARRION MILES MD DATE: 07/12/201513 CC: LOBO BREEN; MICHEL CASTELLANOS MD ~MTH0 0 (TONE CESPEDES MD) Heart Score Risk Factors: Risk Factors: DM, Current or recent (<one month) smoker, HTN, HLP, family history of CAD, obesity. Risk Scores: Risk Factors: DM, Current or recent (<one month) smoker, HTN, HLP, family history of CAD, obesity. (MICHEL CASTELLANOS MD) C/O Chest Pain: N/A HEART Score for Chest Pain: HEART Score for Chest Pain Response (Comments) Value History Slighlty/Non-Suspicious 0 ECG Normal 0 Age >45 - < 65 1 Risk Factors 1 or 2 Risk Factors 1 Troponin < Normal Limit 0 Total 2 (TONE CESPEDES MD) Course & Med Decision Making Course & Med Decision Making Pertinent Labs and Imaging studies reviewed. (See chart for details) [] (MICHEL CASTELLANOS MD) Course & Med Decision Making See Dr. Castellanos chart for details Still awaiting urine and flu results. 2000 hrs. Patient requesting discharge 2000 hours. Patient states he feels a 100% better. Patient follow-up is pending Covid and flu swabs. Suspect this is a viral syndrome and dehydration. But due to patient's history of lymphoma will complete a course of antibiotics. Recommend patient self isolate. Wear a mask anytime when away from home. Return if any concerns. Patient to take Keflex 500 mg 3 times a day. Follow-up cultures. Follow-up primary care. Return if any concerns. Impression: 1. Fever 2. Recent negative Flu and Covid testing at [facility]gent [facility] 3. Mild Leukocytosis 13.8 4. Hyponatremia 133 5. Elevated Creatg. 1.5 6. Non-Hodgkins Lymphoma Hx 7. Dehydration 8. Viral syndrome 9. Mild hypo-magnesium (TONE CESPEDES MD) Dragon Disclaimer Dragon Disclaimer This electronic medical record was generated, in whole or in part, using a voice recognition dictation system. (MICHEL CASTELLANOS MD) Departure Departure: Referrals: LOBO BREEN (PCP) Scripts Cephalexin (KEFLEX) 750 Mg Capsule 750 MG PO TID for fever for 7 Days, #21 CAP Prov: TONE CESPEDES MD 07/12/20 Dragon Disclaimer This chart was dictated in whole or in part using Voice Recognition software in a busy, high-work load, and often noisy Emergency Department environment. It may contain unintended and wholly unrecognized errors or omissions. (TONE CESPEDES MD) MICHEL CASTELLANOS MD Jul 12, 2020 15:28 TONE CESPEDES MD Jul 12, 2020 18:50
[2020-07-12] MEDS ORDERED: VANCOMYCIN 1.5 GM in IV NORMAL SALINE 500ML 500 ML IV ONE (15:30)
[2020-07-12] MEDS ORDERED: PIPERACILLIN/TAZOBACTAM 3.375 GM VIAL IV ONE (15:32)
[2020-07-12] MEDS ORDERED: IV NORMAL SALINE 50ML 50 ML ONE (15:32)
[2020-07-12 15:36] LABS: ALBUMIN 3.6 g/dL (3.4-5.0); MAGNESIUM 1.5 mg/dL (1.8-2.4); TOTAL PROTEIN 7.3 g/dL (6.4-8.2)
[2020-07-12] MEDS ORDERED: VANCOMYCIN PER PHARMACY MC PRN (15:45)
[2020-07-12] MEDS ORDERED: PIPERACILLIN/TAZOBACTAM 3.375 GM in IV NORMAL SALINE 50ML 50 ML IV ONE (15:45)
[2020-07-12] MEDS ORDERED: VANCOMYCIN 2 GM in IV NORMAL SALINE 500ML 500 ML IV ONE (16:00)
[2020-07-12] MEDS ORDERED: IBUPROFEN 800 MG TABLET. PO ONE (17:00)
[2020-07-12] MEDS ORDERED: CEPH750C9 PO (20:20)
[2020-07-12 20:43] LABS: INFLUENZA A PATIENT NEGATIVE (NEGATIVE); INFLUENZA B PATIENT NEGATIVE (NEGATIVE)
[2020-07-12] MEDS ORDERED: MAGNESIUM HYDROXIDE 2,400 MG/30 ML ORAL.SUSP. PO ONE (20:45)
[2020-07-12 21:23] LABS: BACTERIA,URINE MOD /HPF (0-FEW); BILIRUBIN,URINE NEG (NEG); CLARITY,URINE CLOUDY; COLOR,URINE AMBER; GLUCOSE,URINE NEG (NEG); NITRITE,URINE NEG (NEG); SQUAMOUS EPITHELIAL CELL,UR OCC /LPF; UROBILINOGEN,URINE 0.2 mg/dL (0.2 mg/dL)
[2020-07-12 21:26] VITALS: BP 119/52
== END 2020-07-12 21:37 | disposition home or self-care (01) ==
LOC: ER 14:45
DX: D72.829 Elevated white blood cell count, unspecified (principal); E87.1 Hypo-osmolality and hyponatremia; R79.89 Other specified abnormal findings of blood chemistry; E86.0 Dehydration; B34.9 Viral infection, unspecified; E83.42 Hypomagnesemia; F41.9 Anxiety disorder, unspecified; M19.90 Unspecified osteoarthritis, unspecified site; K21.9 Gastro-esophageal reflux disease without esophagitis; F32.9 Major depressive disorder, single episode, unspecified; Z85.72 Personal history of non-Hodgkin lymphomas; Z88.6 Allergy status to analgesic agent; Z88.5 Allergy status to narcotic agent
CPT/HCPCS: 36415; 71045; 80053; 81001; 83605; 83690; 83735; 83880; 84484; 85025; 87804; 93005; 96361; 96365; 96366; 96375; 99285; J2543; J3370; J7030; J7040

== ENCOUNTER → 2021-03-18 | Outpatient (CLI) | payer MEDICARE, OTHER ==
[~2021-03-18] MED LIST changes: +CEPH750C9 PO
--- NOTE | 2021-03-18 12:02 | RAD ---
CT THORAX WO History: Shortness of breath, cough for 2 months. Comparison: CT chest abdomen and pelvis 07/08/2016. Technique: Noncontrast CT of the chest. Findings: Assessment is limited by lack of IV contrast. Cardiovascular: Normal caliber aorta. No significant atherosclerotic calcifications. Normal heart siz e. No pericardial effusion. Mediastinum and hattie: No enlarged adenopathy. Unremarkable esophagus and thyroid. Airways, lungs and pleura: There are few scattered areas of mild bronchial wall thickening or mucous inspissation. No bronchiectasis. No focal airspace consolidation. A right middle lobe 4 mm nodule prudencio ears unchanged from 2017. Stable right major fissural nodule. Stable 3 mm lingular nodule. Pleural ef fusion or pneumothorax. Upper abdomen: Hepatic steatosis. No significant interval change 1.5 cm left anterior hilar lip renal cyst measuring slightly greater than fluid density. Osseous structures and soft tissues: Flowing osteophytes in the thoracic spine. No acute osseous abno rmality. Mild bilateral gynecomastia. Impression: 1. Mild scattered areas with mild bronchial wall thickening or inspissated mucus may represent infect ious or inflammatory bronchitis/bronchiolitis. No airspace consolidation. 2. Stable pulmonary nodules. 3. Hepatic steatosis. ------ Exposure: One or more of the following individualized dose reduction techniques were utilized for thi s examination: 1. Automated exposure control 2. Adjustment of the mA and/or kV according to patient size 3. Use of iterative reconstruction technique. Electronically signed by: Isaiah Velázquez MD (03/18/2021 11:59 AM) [facility]
== END ==
LOC: RAD 11:00
PROVIDERS: ATTEND Family Medicine
DX: R91.8 Other nonspecific abnormal finding of lung field (principal); K76.0 Fatty (change of) liver, not elsewhere classified; J98.09 Other diseases of bronchus, not elsewhere classified; N28.1 Cyst of kidney, acquired; M25.78 Osteophyte, vertebrae; N62 Hypertrophy of breast
CPT/HCPCS: 71250